=== PATIENT | male | born 1990 ===

== ENCOUNTER 2017-07-05 22:48 | Emergency (ER) | payer OTHER ==
[2017-07-05 23:14] VITALS: BP 141/88; PULSE 78; RESP 16; TEMP 98.8; O2SAT 97
--- NOTE | 2017-07-05 23:24 | ED PDOC ---
HPI: CCC, URI, Sore Throat Time Seen by Provider: 07/05/17 23:21 Chief Complaint (Nursing): ENT Problem Chief Complaint (Provider): ear pain History Per: Patient (27 y/o male here with left ear pain x 1 day. Denies any fevers/chills. Used peroxide and states ear feels worse.) Past Medical History Reviewed: Historical Data, Nursing Documentation, Vital Signs Vital Signs: Last Vital Signs Temp 98.8 F 07/05/17 23:12 Pulse 78 07/05/17 23:12 Resp 16 07/05/17 23:12 BP 141/88 07/05/17 23:12 Pulse Ox 97 07/05/17 23:12 - Family History Family History: States: No Known Family Hx - Home Medications Home Medications: Ambulatory Orders Medication Instructions Recorded Ibuprofen [Motrin] 600 mg PO Q8 PRN #21 tab 07/05/17 Penicillin VK [Penicillin VK Tab] 500 mg PO QID #40 tab 07/05/17 - Allergies Allergies/Adverse Reactions: Allergies Allergy/AdvReac Type Severity Reaction Status Date / Time cabbage Allergy ANAPHYLAXIS Verified 07/05/17 23:11 Review of Systems ROS Statement: Except As Marked, All Systems Reviewed And Found Negative ENT: Positive for: Ear Pain Physical Exam - Reviewed Nursing Documentation Reviewed: Yes Vital Signs Reviewed: Yes - Physical Exam Appears: Positive for: Well, Non-toxic, No Acute Distress Head Exam: Positive for: ATRAUMATIC, NORMAL INSPECTION, NORMOCEPHALIC Skin: Positive for: Normal Color, Warm, DRY Eye Exam: Positive for: EOMI, Normal appearance, PERRL ENT: Positive for: Normal ENT Inspection (minimal cerumen noted. Normal TM. No tragal tenderness. no exudate/edema of external canal), Other (left lower molar tenderness; cavity noted; no abscess/gingival irritation.) Neck: Positive for: Normal, Painless ROM Cardiovascular/Chest: Positive for: Regular Rate, Rhythm Respiratory: Positive for: CNT, Normal Breath Sounds Gastrointestinal/Abdominal: Positive for: Normal Exam, Bowel Sounds, Soft Back: Positive for: Normal Inspection Extremity: Positive for: Normal ROM Neurologic/Psych: Positive for: Alert, Oriented - ECG O2 Sat by Pulse Oximetry: 97 Disposition - Clinical Impression Clinical Impression: Ear pain, Left ear pain, Pain, dental - Patient ED Disposition Is Patient to be Admitted: No - Disposition Referrals: [facility] [Outside] Disposition: Routine/Home Disposition Time: 23:24 Condition: FAIR Prescriptions: Ibuprofen [Motrin] 600 mg PO Q8 PRN #21 tab PRN Reason: Fever >100.4 F Penicillin VK [Penicillin VK Tab] 500 mg PO QID #40 tab Instructions: Toothache (ED), Earache (ED)
== END 2017-07-05 23:46 | disposition home or self-care (01) ==
LOC: H.ER 22:48
DX: H92.02 Otalgia, left ear (principal)